=== PATIENT | female | born 1960 | race African-American/Black ===

== ENCOUNTER 2025-08-27 08:07 | Emergency (ER) | payer MEDICAID ==
[~2025-08-27] VITALS: Ht 172.7 cm; Wt 84.0 kg
[2025-08-27 08:10] VITALS: O2SAT 100
[2025-08-27 08:14] VITALS: BP 151/72; PULSE 57; RESP 16; TEMP 36.7; O2SAT 100
[2025-08-27] MEDS: ACETAMINOPHEN 500MG TABLET PO ONE (08:30)
[2025-08-27] MEDS: KETOROLAC 30MG/ML VIAL IM ONE (08:30)
[2025-08-27 10:01] LABS: CLARITY URINE CLEAR (CLEAR); COLOR URINE YELLOW (YELLOW); GLUCOSE URINE NEGATIVE (NEGATIVE); KETONES URINE NEGATIVE (NEGATIVE); LEUKOCYTE ESTERASE URINE TRACE (NEGATIVE); NITRITE URINE NEGATIVE (NEGATIVE); OCCULT BLOOD URINE NEGATIVE (NEGATIVE); PH URINE 6.5 (4.5-8.0); PROTEIN URINE NEGATIVE (NEGATIVE); SPECIFIC GRAVITY URINE 1.019 (1.005-1.030); UROBILINOGEN URINE 1.0 E.U./dL (0.2-1.0)
[2025-08-27] MEDS ORDERED: NAPR-681 MT (10:08)
[2025-08-27 10:09] LABS: BACTERIA URINE 1+; RBC URINE 0-2 /hpf (0-2); SQUAMOUS EPITHELIAL CELL URINE 1+ /lpf (RARE/1+); YEAST URINE NONE SEEN
== END 2025-08-27 10:42 | disposition home or self-care (01) ==
LOC: ER 08:07
DX: M54.30 Sciatica, unspecified side (principal); Z55.6 Problems related to health literacy; Z79.899 Other long term (current) drug therapy
CPT/HCPCS: 81003; 96372; 99283; J1885; Z7610